=== PATIENT | male | born 1970 | race Caucasian/White ===

== ENCOUNTER 2017-11-18 16:40 | Emergency (ER) | payer OTHER ==
--- NOTE | 2017-11-18 17:18 | EDPHY ---
H & P Stated Complaint: LEFT RIB PAIN FROM FALL Source: Patient Exam Limitations: No limitations - Personal History Current Tetanus/Diphtheria Vaccine: Yes Current Tetanus Diphtheria and Acellular Pertussis (TDAP): Yes - Medical/Surgical History Hx Asthma: No Hx Chronic Respiratory Disease: No Hx Diabetes: No Hx Cardiac Disease: No Hx Renal Disease: No Hx Cirrhosis: No Hx Alcoholism: No Hx HIV/AIDS: No Hx Splenectomy or Spleen Trauma: No Other PMH: abd hernia repair - Social History Smoking Status: Never smoked Time Seen by Provider: 11/18/17 17:18 HPI/ROS: HPI: This is a 47-year-old male presents Chief Complaint: LEFT RIB PAIN FROM FALL Location: Left rib Quality: Pain Duration: 2 days Signs and Symptoms: No bleeding, no radiation, no numbness, no weakness, no tingling, no incontinence, no decreased range of motion, no swelling, + pain, no shortness of breath, no cough, no chest pain Timing: Sudden, worse with certain movements and taking deep breath Severity: [id number] Context: Patient reports that he accidentally slipped on the ice 2 days ago and fell directly on his left side. He denies any bruising/shortness of breath/ LOC/head injury/neck pain/headache/dizziness. He does report that he has this continued an aching pain in his left lower lateral ribs that is worsened with palpation/certain movements/taking a deep breath. He has not had any recent long distance travel. Nonsmoker. No history of lung disease. He is requesting an x-ray to evaluate for rib fracture. Modifying Factors: [id number] medications Comment: ROS: see HPI Constitutional: No fever, no chills, no weight loss Eyes: No blurred vision Respiratory: No shortness of breath, no cough Cardiovascular: No chest pain Gastrointestinal: No nausea, no vomiting no diarrhea Genitourinary: No dysuria Extremities: No myalgias Neurologic: No weakness, no numbness Skin: No rashes Hematologic: No bruising, no bleeding MEDICAL/SURGICAL/SOCIAL HISTORY: Medical history: Generally healthy. Does not take any regular medications. Surgical history: Abdominal hernia repair Social history: Originally from [place]. CONSTITUTIONAL: Nontoxic appearing, polite and cooperative, adult white male awake and alert, no obvious distress HEENT: Atraumatic and normocephalic, PERRL, EOMI. no globe entrapment, no raccoon eyes. no Hess signs.Tympanic membranes clear. No tympanic membrane rupture. Nares patent; no septal hematoma. Oropharynx clear, no exudate and moist pink mucosa. No malocclusion. no dental trauma. Airway patent. No lymphadenopathy. NECK: supple, no midline tenderness, flexion 45 degrees, extension 45 degrees, right and left lateral flexion 45 degrees. No meningismus. Cardiovascular: Normal S1/S2, regular rate, regular rhythm, without murmur rub or gallop. PULMONARY/CHEST: Symmetrical and mild reproducible tenderness on left lateral lower posterior ribs. no crepitus. No ecchymosis. Clear to auscultation bilaterally. Good air movement. No accessory muscle usage. ABDOMEN: Soft, nondistended, nontender, no ecchymosis, no rebound, no guarding , no peritoneal signs, no masses or organomegaly. No CVAT. PELVIC: no pain with rocking; bilateral hips flexion 125 degrees, extension 30 degrees, with no pain internal rotation and no pain external rotation. BACK: No midline tenderness, no paraspinous spasm, deep tendon reflexes 2/2, no pain with straight leg raise EXTREMITIES: 2/2 pulses, no deformities, no clubbing, no cyanosis or edema. NEUROLOGICAL: no focal neuro deficits. GCS 15. SKIN: Warm and dry, no erythema. no rash. Good capillary refill. (Izabella Tran) Constitutional: Initial Vital Signs Temperature (C) 36.9 C 11/18/17 16:44 Heart Rate 72 11/18/17 16:44 Respiratory Rate 19 11/18/17 16:44 Blood Pressure 127/86 H 11/18/17 16:44 O2 Sat (%) 99 11/18/17 16:44 O2 Delivery Mode Room Air Allergies/Adverse Reactions: Penicillins Allergy (Verified 11/18/17 16:42) Home Medications: Medication Instructions Recorded Lidocaine 5% [Lidoderm 5% Patch 1 ea TD DAILY #6 patch 11/18/17 (*)] Medical Decision Making ED Course/Re-evaluation: Chest x-ray with left rib series ordered Lidoderm patch placed with adequate relief of discomfort Vital signs stable upon arrival including no hypoxia/respiratory distress. This x-ray my read shows no signs of opacity, effusion, pneumothorax, rib fracture, wide mediastinum. Advised supportive care. This patient was seen under the supervision of my secondary supervising physician. I evaluated care for this patient independently. Discussed this patient with Dr. Hahn who did not see the patient. (Izabella Tran) Differential Diagnosis: Differential diagnosis includes but is not limited to rib contusion, rib fracture, pneumothorax, contusion. (Izabella Tran) Other Provider: The patient was evaluated and managed by the Physician Computer Hardware Technician. I discussed the patient's presentation and course with the physician assistant import manager and agree with the evaluation. My co-signature indicates that I have reviewed this chart and I agree with the findings and plan of care as documented. I am the secondary supervising physician. (Tamy Hahn) Departure - Departure Disposition: Home, Routine, Self-Care Clinical Impression: Contusion of rib on left side Condition: Good Instructions: Rib Contusion (ED) Additional Instructions: Take Ibuprofen 600-800 mg every 6-8 hours with food as needed for pain. Apply Lidoderm patch at the area with most pain and leave on for 12 hr. Apply heating pad to the area and perform gentle stretching exercises 2 times per day. Avoid any physical/moderate exertion activities until pain no longer exist. Fit any time he have worsening symptoms including uncontrolled pain, shortness of breath, and fever; please return to the emergency room immediately for re- evaluation. Referrals: Med Nunn MD [Primary Care Provider] - As per Instructions Prescriptions: Lidocaine 5% [Lidoderm 5% Patch (*)] 1 ea TD DAILY #6 patch
[2017-11-18 17:56] VITALS: BP 130/78; PULSE 81; RESP 16; TEMP 98.2; O2SAT 95
[2017-11-18] MEDS ORDERED: LIDOCAINE 5% 1 EA PATCH TD ONE (17:59)
[2017-11-18] MEDS ORDERED: PATCH REMOVAL 1 EA PATCH TD SCH (21:00)
[2017-11-19] MEDS ORDERED: LIDOCAINE 5% 1 EA PATCH TD SCH (09:00)
== END 2017-11-18 18:04 | disposition home or self-care (01) ==
DX: S20.212A Contusion of left front wall of thorax, initial encounter (principal); W00.0XXA Fall on same level due to ice and snow, initial encounter